=== PATIENT | male | born 2000 | race Caucasian/White ===

== ENCOUNTER 2021-06-19 12:20 | Emergency (ER) | payer SELFPAY ==
--- NOTE | ~2021-06-19 | XR_ITS ---
EXAMINATION: XR RIBS, RIGHT CLINICAL INFORMATION: Pain right posterior rib cage. COMPARISON: None TECHNIQUE: 3 views of the right ribs were obtained. Chest 1 view FINDINGS: The lungs are well-expanded and clear. The heart size and pulmonary vascularity is normal. No gross bony abnormality seen. Multiple views of right ribs reveal no visible fracture or bony abnormality. XR/XR ribs RT min 3V w [id number] IMPRESSION: Unremarkable chest exam. Unremarkable right rib series
[2021-06-19 12:35] VITALS: BP 126/75; PULSE 73; RESP 18; TEMP 36.8; O2SAT 100; BMI 23.3
[2021-06-19] MEDS: Ibuprofen 800 MG TABLET PO (13:51)
[2021-06-19] MEDS: diazePAM 5 MG TABLET PO (13:52)
--- NOTE | 2021-06-19 13:57 | ED.GENADULT ---
HPI - General Adult General Chief complaint: Anxiety Stated complaint: DIFF BREATHING PANIC ATTACK Time Seen by Provider: 06/19/21 13:00 Source: patient and family (At bedside) Mode of arrival: ambulatory Limitations: no limitations History of Present Illness HPI narrative: 20-year-old male with no significant past medical or surgical history presenting to the ED with complaints of right lateral/posterior rib cage pain that started today. He reports that over the weekend he was sleeping on a bowl and uncomfortable positions and they were drinking all weekend and him and his monica believe that this may be muscular related and caused by him sleeping wrong. He reports every time he takes a deep breath his ribs hurt on the right side. Patient denies any traumas, falls, fevers, dizziness, headaches, lightheadedness, change in vision, nausea/vomiting, anterior chest pain, shortness of breath, dyspnea on exertion, orthopnea, palpitations, extremity edema, abdominal pain, back pain or any other symptoms complaints or concerns at this time. Related Data Previous Rx's Medication Instructions Recorded acetaminophen [Tylenol Extra 1,000 mg PO QID PRN #14 tab 06/19/21 Strength] diazepam [Valium] 10 mg PO TID PRN #10 tab 06/19/21 ibuprofen 800 mg PO Q8H PRN #14 tab 06/19/21 lidocaine HCl [Aspercreme 1 appl TOPICAL BID PRN #120 g 06/19/21 (lidocaine HCl)] Allergies Allergy/AdvReac Type Severity Reaction Status Date / Time No Known Allergies Allergy Verified 06/19/21 13:38 Review of Systems Review of Systems: Constitutional : No Weight loss, No Fever, No Chills, No Night Sweats, No Fatigue, No Malaise ENT/Mouth : No Hearing loss, No Ear Pain, No Nasal Congestion, No Sinus Pain, No Hoarseness, No sore throat, No Rhinorrhea, No Swallowing Difficulty Eyes: No Eye Pain, No Swelling, No Redness, No Foreign Body, No Discharge, No Vision Changes Cardiovascular :No Chest Pain, No SOB, no Dyspnea on Exertion, No Orthopnea, No Edema, No extremity swelling, No Palpitations Respiratory : No Cough, No Sputum, No Wheezing, No Dyspnea Gastrointestinal : No Nausea, No Vomiting, No Diarrhea, No abdominal Pain, No Hematochezia, No Melena Genitourinary : No irregular bleeding, No Dysuria, No Urinary Frequency, No Hematuria, No Urinary Incontinence, No Urgency, No Flank Pain, No Urinary Flow Changes, No Hesitancy Musculoskeletal : Positive right lateral/posterior rib cage pain, No joint pain, No Myalgias, No Joint Swelling Skin : No Skin Lesions, No rash Neuro : No Weakness, No Numbness, No Paresthesias, No Loss of Consciousness, No Dizziness, No Headache Psych : No Anxiety/Panic, No Depression, No SI/HI/AH/VH Heme/Lymph: No Bruising, No Bleeding,No Lymphadenopathy Endocrine : No Polyuria, No Polydipsia, No Temperature Intolerance Yes all other systems are reviewed and are negative FORMERLY [facility], [facility]–1983 Past Medical History Attestation statement: The following information was validated with the patient. Medical History No known health problems Social History Social History Advance Directives: No Advance Directives Information Provided: No Physical Exam Vital Signs: Vital Signs: Last Vital Signs Temp 98.2 F 06/19/21 12:35 Pulse 73 06/19/21 12:35 Resp 18 06/19/21 12:35 BP 126/75 06/19/21 12:35 Pulse Ox 100 06/19/21 12:35 Body Mass Index 23.3 vital signs have been reviewed as normal and appeared to be correct. Blood pressure normal. Heart rate normal. Respiration rate normal. Temperature normal. Oxygen saturation normal. Appearance: Alert. Oriented X3. No acute distress. Head: Normal external exam. Normocephalic. Atraumatic. Eyes: PERRLA. EOMI. Conjunctiva and sclera normal. Eyelids normal. ENT: Pharynx normal. Uvula midline. Moist mucous membranes. Neck: Normal inspection. Neck supple. FROM. No adenopathy. No meningeal signs. No neck mass noted. CVS: Normal heart rate and rhythm. Heart sound normal. Pulses normal throughout. No murmurs/rales/gallops. Respiratory: No respiratory distress. Painless inspiration. Breath sounds normal. No wheezes/rales/rhonchi noted. Chest tender to palpation to right lateral/posterior lower rib cage. Not consistent with flail chest. No rashes noted. No obvious deformities noted. No accessory muscle usage noted or decreased air movement noted. Back: Full range of motion noted. No rashes/lesion/induration/fluctuance or signs of infection noted. Skin: Skin warm and dry. Normal skin color. Normal skin turgor. No rashes/lesions/lacerations noted. Extremities: No lower extremity edema. Extremities exhibit normal range of motion. Extremities nontender. Neuro: Oriented X 3. No motor deficit. No sensory deficit. Reflexes normal. Normal steady gait. No focal neuro deficits noted. Vascular: + radial pulses/+ 2 distal pedal pulses/+2 dorsalis pedis b/l. Normal cap refill. No cyanosis noted to upper extremity nails and lower extremity toes nails. Course Course Course Narrative: 20-year-old male with no significant past medical or surgical history presenting to the ED with complaints of right lateral/posterior rib cage pain that started today. He reports that over the weekend he was sleeping on a bowl and uncomfortable positions and they were drinking all weekend and him and his monica believe that this may be muscular related and caused by him sleeping wrong. He reports every time he takes a deep breath his ribs hurt on the right side. On exam patient has reproducible right lateral/posterior lower ribcage pain. Not consistent with flow chest. No obvious deformities or signs of infection. No rashes noted. Will obtain x-ray if negative will DC home with symptomatic treatment instructions to return if any new or worsening symptoms follow-up with primary care provider. Patient and friend at bedside understand agree this plan. Medical Decision Making Medical Records Medical records reviewed: Yes I reviewed the patient's medical records. Discharge Plan Discharge Clinical Impression: Chest wall muscle strain Patient Disposition: Home, Self-Care Instructions: Chest Wall Pain (ED) Prescriptions: New ibuprofen 800 mg tablet 800 mg PO Q8H PRN (Reason: pain) Qty: 14 RF: 0 acetaminophen [Tylenol Extra Strength] 500 mg tablet 1,000 mg PO QID PRN (Reason: fever or pain) Qty: 14 RF: 0 diazepam [Valium] 10 mg tablet 10 mg PO TID PRN (Reason: muscle spasm) Qty: 10 RF: 0 lidocaine HCl [Aspercreme (lidocaine HCl)] 4 % cream 1 appl topical BID PRN (Reason: pain) Qty: 120 RF: 0 Referrals: Physician,Unknown [Primary Care Provider] - 2 days (your pcp) Stand Alone Forms: Work/School Release Print Language: Yoruba
== END 2021-06-19 15:03 | disposition home or self-care (01) ==
PROVIDERS: Emergency Provider Emergency Medicine
DX: S29.011A Strain of muscle and tendon of front wall of thorax, initial encounter (principal); X58.XXXA Exposure to other specified factors, initial encounter; Y93.9 Activity, unspecified; Y92.9 Unspecified place or not applicable; Y99.9 Unspecified external cause status
CPT/HCPCS: 71101; 99283